=== PATIENT | female | born 1990 | race Caucasian/White ===

== ENCOUNTER 2024-08-25 06:27 | Day surgery (SDC) | payer OTHER ==
[~2024-08-25] VITALS: Ht 175.3 cm; Wt 63.3 kg
[~2024-08-25 06:27] MED LIST: MIDAZOLAM HCL 5 MG/5 ML VIAL IV PRN; VITAMIN B-12100 MCG PO; fentaNYL citrate 100 MCG/2 ML VIAL IV PRN
[2024-08-25 06:46] VITALS: BP 106/77
[2024-08-25] MEDS ORDERED: MIDAZOLAM HCL 5 MG/5 ML VIAL ONE (06:47)
[2024-08-25] MEDS ORDERED: fentaNYL citrate 100 MCG/2 ML VIAL ONE (06:47)
[2024-08-25] MEDS ORDERED: CLONAZEPAM0.5 MG PO (06:53)
[2024-08-25] MEDS ORDERED: ADDERALL XR 1010 MG PO (06:53)
[2024-08-25] MEDS ORDERED: LACTATED RINGER'S 1,000 ML IV SCH (07:00)
[2024-08-25] MEDS ORDERED: IBLOOD GLUCOSE TEST STRIP 1 EA TEST VI PRN (07:00)
[2024-08-25] MEDS ORDERED: LIDOCAINE HCL 1% 5 ML SDV INJ ONE (07:00)
--- NOTE | 2024-08-25 07:25 | NUR ---
PT NOT AVAILABLE FOR VISIT. PROVIDED PRAYER.
--- NOTE | 2024-08-25 08:19 | NUR ---
08/25/24 0819 Mary Sharp 0815-PATIENT ARRIVED TO PACU ON 2L NC RR EVEN. PATIENT REACTIVE TO VERBAL STIMULI OPENS EYES DENIES PAIN OR NAUSEA. LAYING LEFT LATERAL. ABDOMEN SOFT ENCOURAGED TO PASS GAS IVF INFUSING. PATIENT DOZES BACK TO SLEEP.
[2024-08-25 09:37] VITALS: BP 98/70
--- NOTE | 2024-08-25 09:51 | OR ---
[facility] [address], [place] [address] Signed DATE OF OPERATION: 08/25/2024 SURGEON: Sushila Mason MD PREOPERATIVE DIAGNOSES: 1. MEN1 syndrome. 2. Epigastric abdominal pain. 3. Nausea, vomiting. 4. Hyperkinetic gallbladder. 5. A sister with multiple colonic polyps, age 25. POSTOPERATIVE DIAGNOSES: 1. Mild gastroduodenitis. 2. Small hiatal hernia (36-34 cm). 3. GE junction at 34 cm. 4. Long redundant colon. 5. Tortuous colon. 6. Minimal diverticulosis. 7. Minimal to moderate internal hemorrhoids. PROCEDURES: 1. Esophagogastroduodenoscopy with CLOtest and biopsies of the pyloric bulb and antrum. 2. Colonoscopy without biopsies. ESTIMATED BLOOD LOSS: None. INDICATIONS: Chel is a 34-year-old female asked to see me for upper and lower endoscopy. She has been diagnosed with MEN1 syndrome. She most recently went to Dr. Wojciech Barber at [facility] and [facility]. She was having bone pain originally and found out she indeed had MEN1 syndrome. She had her parathyroid resection in [place], [place]. She also has a pituitary adenoma with a slightly elevated prolactin level. It is not enough to cause her amenorrhea or galactorrhea. She has not been on any bromocriptine. She is following with her attendant self service store, Dr. Elsi Black at [facility] in [place], [place]. 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 She has been having some epigastric abdominal pain associated with nausea and vomiting and a sense of feeling full over a prolonged period of time. She had an ultrasound in February of this year which was unremarkable of the gallbladder and liver. A CT scan in February of this year showed Electronically Signed By: SUSHILA MASON MD 08/25/24 0951 PATIENT NAME: CHEL DAWKINS OPERATIVE REPORT DATE OF : 88 REPORT #: [id number] PHYSICIAN: SUSHILA MASON MD PCP: ANTONIO SANDOVAL MD REPORT IS CONFIDENTIAL AND NOT TO BE RELEASED WITHOUT AUTHORIZATION [facility] [address], [place] [address] Signed some cystitis and mild left pyelonephritis. This responded nicely to her antibiotics. She did have a HIDA scan performed and her gallbladder was hyperkinetic with ejection fraction at 92%. She had been sent to Dr. Barber regarding possible gallbladder surgery. She understands removing her gallbladder may or may not relieve her symptoms. It was felt she might be better served to see me as a local general surgeon for an upper endoscopy with biopsies. She understands at this point her life it would be unlikely she would have a gastrinoma. She told me her gastrin levels have been fine. It would also be unlikely that she has an insulinoma knowing that her fasting blood sugar has also been fine. She also told me her sister had colonic polyps removed starting at age 25. Her sister has been back several times for colonoscopies and had multiple colonic polyps removed. She tells me her sister does not have any polyposis syndrome. Chel had come to the office with her . She lives about an hour [place] a half from our hospital. She does not seem to have any lower GI complaints. In the office, I gave them pamphlets on both upper and lower endoscopy. We had reviewed the nature of the two tests. There is risk including, but not limited to gas bloating, crampy abdominal pain, bleeding, perforation requiring surgery, and missed diagnosis. We also reviewed the written instructions for a bowel prep line by line. We also reviewed the need for IV conscious sedation. She told me today she is easy to put to sleep. However, she does use Adderall and she took some yesterday. She also uses clonazepam as needed. She took some little over a week ago. She had expressed understanding and wished to proceed. DESCRIPTION OF PROCEDURE: Chel was taken into our endoscopy suite and placed in the supine semi-recumbent position. The posterior oropharynx was anesthetized with lidocaine spray. A bite block was utilized for the case. The adult gastroscope was introduced and advanced under direct visualization of camera without difficulty. The duodenum proper was unremarkable. I could not see the ampulla of Vater with the forward viewing scope. We did see some irritation in the pyloric bulb and some mild irritation in the stomach as well. She probably has mild gastroduodenitis. We went ahead and took a biopsy of the pyloric bulb as well as the antrum. An additional biopsy came out of the antrum for CLOtest. There were no ulcerations. Upon retroflexion of scope, she does have a small hiatal hernia. The scope was withdrawn up through the area of the GE junction, which was compliant without stricture. Hiatal hernia is about 36 cm back to 34 cm. Consequently her GE junction is at 34 cm. There was no Cage's mucosa. There was no distal esophagitis. The middle and upper esophagus were unremarkable. After this the gas was suctioned out, the gastroscope removed. Chel tolerated upper endoscopy quite well. Chel was rotated into the left lateral decubitus position. She was maintained on IV sedation with a total of 10 mg of Versed and 200 mcg of fentanyl. A digital rectal exam was performed. This was unremarkable. No external hemorrhoids. She has good sphincter tone. There were no masses. The adult colonoscope was introduced and advanced to a Electronically Signed By: SUSHILA MASON MD 08/25/24 0951 PATIENT NAME: CHEL DAWKINS OPERATIVE REPORT DATE OF : 88 REPORT #: [id number] PHYSICIAN: SUSHILA MASON MD PCP: ANTONIO SANDOVAL MD REPORT IS CONFIDENTIAL AND NOT TO BE RELEASED WITHOUT AUTHORIZATION [facility] [address], [place] [address] Signed long redundant and tortuous colon. There were several areas that took extra sedation, abdominal compression to get through. We finally made it slowly but surely into the cecum itself. Her prep was quite excellent. We did suction out some fluid in the cecum. We could easily see her appendiceal orifice and ileocecal valve. The scope was then slowly withdrawn. We saw a few diverticula in the sigmoid colon. She had no polyps. The rectum was unremarkable. Upon retroflexion of scope, she does have minimal to moderate internal hemorrhoid columns. After this, the gas was suctioned out. The colonoscope removed. Chel tolerated the procedure quite well. RECOMMENDATIONS: I will see Chel back in my office in 7 to 14 days to review her upper and lower endoscopy results. She might consider a proton pump inhibitor or H2 obdulia to see if it resolves her symptoms. We could also review her hyperkinetic gallbladder. Sushila Mason MD ALB/MODL /[id number] cc: MD Sushila Barraza MD Dr. Shanaz Sikder Copies: WOJCIECH BARBER MD,SUSHILA Izaguirre MD ~ Electronically Signed By: SUSHILA MASON MD 08/25/24 0951 PATIENT NAME: CHEL DAWKINS OPERATIVE REPORT DATE OF : 88 REPORT #: [id number] PHYSICIAN: SUSHILA MASON MD PCP: ANTONIO SANDOVAL MD REPORT IS CONFIDENTIAL AND NOT TO BE RELEASED WITHOUT AUTHORIZATION
--- NOTE | 2024-08-25 10:05 | NUR ---
PT STATES SHE HAS NO DIZZINESS, NAUSEA, OR DIFFICULTY BREATHING AT THIS TIME. RR OBSERVED BY THIS RN RANGING FROM 13/17 BREATHS PER MINUTE. O2 REMAINS >100% ON RA W/NO APNEIC PERIODS OBSERVED. PT GETTING DRESSED AT THIS TIME W/ IN ROOM. CALL LIGHT WITHIN REACH.
[2024-08-25 10:10] VITALS: BP 99/77
--- NOTE | 2024-08-25 10:10 | NUR ---
IN PT ROOM FOR DC EDUCATION. PT STATES VERBAL UNDERSTANDING TO DC EDUCATION AND NO FURTHER QUESTIONS OR NEEDS AT THIS TIME. PT STATES NO DIZZINESS OR NAUSEA EXPERIENCED. VS TAKEN. PT OFF OF UNIT VIA WC TO PASSENGER SIDE OF 'S VEHICLE. PT REPORTS NO FURTHER QUESTIONS OR NEEDS AT THIS TIME. ALL BELONGINGS IN PT POSSESSION AT THIS TIME.
--- NOTE | 2024-08-28 16:12 | PATH ---
[facility] [address], [place] [address] Signed THIS IS AN ADDENDUM REPORT SPECIMEN(S): A PYLORIC BULB BIOPSY SPECIMEN(S): B ANTRUM BIOPSY SPECIMEN SOURCE: A. PYLORIC BULB BIOPSY B. ANTRUM BIOPSY CLINICAL HISTORY: Epigastric pain, "illegible word ", MEN1 syndrome, gastroparesis, N and V, thyroid CA prolactinoma. Postop: Gastroduodenitis, hiatal hernia, diverticulosis. FINAL PATHOLOGIC DIAGNOSIS: A. Pyloric bulb, biopsy: - Fragment of benign duodenal mucosa, negative for specific diagnostic abnormality. B. Antrum, biopsy: - Benign gastric mucosa with focal slight chronic inflammation. - Negative for evidence of Helicobacter organisms on routine HE stained sections. - See comment. COMMENT: A Helicobacter pylori immunostain is pending and the results will be reported in an addendum. JVR:cml MICROSCOPIC EXAMINATION: Histologic sections of all submitted blocks are examined by light microscopy. These findings, together with the gross examination, support the pathologic diagnosis. GROSS DESCRIPTION: A. The specimen, labeled and designated "Marcelino Moraes, pyloric bulb biopsy," is received in formalin and consists of one danielson soft tissue fragment, 0.4 cm. Entirely submitted in (A1). B. The specimen, labeled and designated "Marcelino Moraes, antrum biopsy," is received in formalin and consists of one danielson soft tissue fragment, 0.7 cm. Entirely submitted in (B1). PATIENT NAME: MARCIA MORAES PATHOLOGY DATE OF : 88 REPORT #: [id number] PHYSICIAN: KEVIN BROCK PCP: ANTONIO SANDOVAL MD REPORT IS CONFIDENTIAL AND NOT TO BE RELEASED WITHOUT AUTHORIZATION [facility] [address], [place] [address] Signed AB (under the direct supervision of a pathologist) The Gross Description was prepared using a voice recognition system. The report was reviewed for accuracy; however, sound-alike word errors, addition and/or deletions may occur. If there is any question about this report, please contact Client Services. PERFORMING LABORATORY: Technical component was performed by [facility], [address] [place] [id number] (CLIA# [id number]). Professional interpretation was performed by [facility], [address] [place] [id number] (CLIA#: [id number]). ADDITIONAL NOTES: Immunohistochemical and/or in situ hybridization studies were performed on this case with the appropriate positive controls that react as expected. This test was developed and its performance characteristics determined by [facility]. It has not been cleared or approved by the U.S. Food and Drug Administration. The FDA has determined that such clearance or approval is not necessary. This test is used for clinical purposes. It should not be regarded as investigational or for research. [facility] is certified under the Clinical Laboratory Improvement Amendments of 1988 (CLIA) as qualified to perform high complexity clinical laboratory testing. This assay has not been validated for specimens that have been decalcified. The technical preparation was performed by [facility], [address] [place] [id number] (CLIA#: [id number]). Professional interpretation was performed by [facility], [facility] [place] [address] (CLIA#: [id number]). REASON FOR ADDENDUM: To report the results of Helicobacter pylori immunostains. ADDENDUM COMMENT: A Helicobacter pylori immunostain is performed with appropriate controls on block B1 and is negative for organisms. The original diagnostic features remain unchanged. Diagnostician: Jeff Daniel MD Pathologist PATIENT NAME: MARCIA MORAES PATHOLOGY DATE OF : [birth year] REPORT #: [id number] PHYSICIAN: KEVIN PATHOLOGY PCP: ANTONIO SANDOVAL MD REPORT IS CONFIDENTIAL AND NOT TO BE RELEASED WITHOUT AUTHORIZATION [facility] [address] [place] [address] [place], [place] [address] Signed Electronically Signed 08/28/2024 Copies: ~ PATIENT NAME: MARCIA MORAES PATHOLOGY DATE OF : [birth year] REPORT #: [id number] PHYSICIAN: KEVIN BROCK PCP: ANTONIO SANDOVAL MD REPORT IS CONFIDENTIAL AND NOT TO BE RELEASED WITHOUT AUTHORIZATION
== END 2024-08-25 10:15 | disposition home or self-care (01) ==
LOC: DS 06:27 → DSVR 06:27 → DS 07:30
PROVIDERS: ATTEND Colon & Rectal Surgery
PROC: 0DJD8ZZ Inspection of Lower Intestinal Tract, Via Natural or Artificial Opening Endoscopic (ICD-10-PCS; 2024-08-25)
PROC: 0DB68ZX Excision of Stomach, Via Natural or Artificial Opening Endoscopic, Diagnostic (ICD-10-PCS; principal; 2024-08-25 07:30)
PROC: 0DB78ZX Excision of Stomach, Pylorus, Via Natural or Artificial Opening Endoscopic, Diagnostic (ICD-10-PCS; 2024-08-25 07:30)
DX: K29.90 Gastroduodenitis, unspecified, without bleeding (principal); K44.9 Diaphragmatic hernia without obstruction or gangrene; K64.8 Other hemorrhoids; K57.30 Diverticulosis of large intestine without perforation or abscess without bleeding; E31.21 Multiple endocrine neoplasia [MEN] type I; K92.89 Other specified diseases of the digestive system; K63.89 Other specified diseases of intestine; K82.8 Other specified diseases of gallbladder; K31.84 Gastroparesis; D35.2 Benign neoplasm of pituitary gland; Z83.711 Family history of hyperplastic colon polyps; Z88.2 Allergy status to sulfonamides; Z91.012 Allergy to eggs; Z91.013 Allergy to seafood
CPT/HCPCS: 36415; 84703; 87077; 99153; G0500; J2250; J3010; J7121